=== PATIENT | female | born 1975 | race Caucasian/White ===

== ENCOUNTER 2017-09-23 13:11 | Inpatient (IN) | payer OTHER ==
[~2017-09-23] VITALS: Ht 172.1 cm; Wt 73.9 kg
[~2017-09-23 13:11] MED LIST changes: -FLUT1DIS27 IH; -OMEP-125 PO
[2017-09-23] MEDS ORDERED: FAMOTIDINE(*) 20MG/50ML PREMIX 50 ML IVPB PRN (13:17)
[2017-09-23] MEDS ORDERED: OXYTOCIN 30 UNIT/D5LR 500 ML 500 ML IV PRN (13:17)
[2017-09-23] MEDS ORDERED: METOCLOPRAMIDE 10 MG/2 ML SDV IVP PRN (13:20)
[2017-09-23] MEDS ORDERED: LIDOCAINE 1% LOCAL 300 MG/30ML INJ PRN (13:20)
[2017-09-23] MEDS ORDERED: FLUSH 10 ML SYR IVP PRN (13:20)
[2017-09-23] MEDS ORDERED: fentaNYL CITR 100 MCG/2 ML AMP IVP PRN (13:20)
[2017-09-23] MEDS ORDERED: cefOXitin SOD 2 GM VIAL 2 GM in NS(*) 0.9% 100 ML BAG 100 ML IVPB PRN (13:20)
[2017-09-23 13:43] VITALS: BP 130/78; Ht 172.1 cm; Wt 73.9 kg
[2017-09-23] MEDS ORDERED: DINOPROSTONE 10 MG INSERT PV ONE (14:00)
[2017-09-23] MEDS ORDERED: TERBUTALINE SULF 1 MG/ML VIAL SUBQ PRN (14:00)
[2017-09-23 14:14] LABS: PLATELET COUNT, AUTOMATED 176 K/uL (150-450)
[2017-09-23] MEDS: LR(*) 1000 ML BAG 1,000 ML IV PRN (14:16)
[2017-09-23] MEDS: DLR(*) 1000 ML BAG 1,000 ML IV PRN ×2 (14:16→23:53)
--- NOTE | 2017-09-23 15:00 | History & Physical ---
History of Present Illness Age of Patient: 42 : 4 Para or TPAL: 0030 EDC per LMP: September 28, 2017 Estimated Gestational Age: 39.2 Chief Complaint loss of fluid History of Present Illness The patient is a 42 year old 4 para 0030 admitted at 39 2/7 weeks estimated gestational age with an estimated date of delivery 09/28/17 . Patient is admitted with complaint of loss of fluid . No vaginal bleeding. Good movement and occasional contractions. She was evaluated for active labor. She had an uncomplicated course. Her record was reviewed. History Allergies: Coded Allergies: Latex, Natural Rubber (Verified Allergy, Mild, Hives, 09/23/17) Med Rec Home Meds Active Scripts Promethazine Hcl (PROMETHAZINE HCL) 25 Mg Supp.rect, 25 MG RC Q8H Y for NAUSEA, #5 SUPP.RECT Prov:DAVID BARTH MD 04/08/17 Promethazine Hcl (PROMETHAZINE HCL) 12.5 Mg Tablet, 12.5 MG PO Q6H Y for NAUSEA , #10 TAB Prov:DAVID BARTH MD 04/08/17 Reported Medications Vits W-Ca,Fe,Fa(<1MG) ( VITAMINS) 1 Each Tablet, 1 TAB PO DAILY , TAB 06/30/15 Exam General Exam Vital Signs Vital Signs Date Time Temp Pulse Resp B/P (MAP) Pulse Ox O2 Delivery O2 Flow Rate FiO2 09/23/17 13:43 98.4 78 14 130/78 (95) 98 Room Air Cardiovascular: Regular Rate and Rhythm Respiratory: Clear to Auscultation Abdomen: Gravid - Non-Tender Extremities: No Edema Cervical Dialation: 0 Cervical Effacement (%): 50 Cervical Consistency: Moderate Cervical Position: Mid Station: -2 Presentation: Vertex Uterine Contractions(Q min): 0 Fetus Heart Tones: 120 Heart Tone Variabilty: Moderate FHT Category: I Medical Decision Making Data Points Result Diagram: 09/23/17 1340 Assessment and Plan Problems: (1) Premature rupture of membranes Assessment & Plan: amnisure positive, no gush of fluid, no ferning at office. small leak likely, very unfavorable cervix will start cervadil to see able to ripen cervix for delivery. Copies to: CHIP MENDIETA MD Problem Qualifiers (1) Premature rupture of membranes: PROM onset of labor timing: unspecified duration between rupture of membranes and onset of labor PROM gestational age: full term Qualified Codes: O42.92 - Full-term premature rupture of membranes, unspecified as to length of time between rupture and onset of labor CHIP MENDIETA MD September 23, 2017 14:59
[2017-09-23] MEDS ORDERED: FLUT1DIS27 IH (15:03)
[2017-09-23] MEDS ORDERED: OMEP-125 PO (15:03)
[2017-09-23] MEDS ORDERED: EPIDURAL KEYS XX PRN (20:20)
[2017-09-23] MEDS ORDERED: LIDO/EPI 2% MPF 1:200,000 20ML EPI PRN (20:20)
[2017-09-23] MEDS ORDERED: LIDOCAINE/PF 2% 200MG/10ML AMP 200 MG/10 ML AMPUL EPI PRN (20:20)
[2017-09-23] MEDS ORDERED: BUPIVACAINE 0.5% INJ 30ML VIAL EPI PRN (20:20)
[2017-09-23] MEDS ORDERED: fentaNYL CITR 100 MCG/2 ML AMP IT PRN (20:20)
[2017-09-23] MEDS ORDERED: FENTANYL/ROPIVACAINE 100 ML BAG EPI PRN (20:20)
[2017-09-23] MEDS ORDERED: ePHEDrine 25 MG/5 ML DISP.SYR IVP PRN (20:20)
[2017-09-23] MEDS ORDERED: BUPIVACAINE 0.25% MPF INJ EPI PRN (20:20)
[2017-09-24] MEDS ORDERED: MISOPROSTOL 25 MCG CAP PV ONE (02:45)
[2017-09-24] MEDS: DLR(*) 1000 ML BAG 1,000 ML IV PRN (08:15)
[2017-09-24] MEDS ORDERED: OXYTOCIN 30 UNIT/D5LR 500 ML 500 ML IV PRN (09:01)
--- NOTE | 2017-09-24 09:04 | Labor Progress Note ---
Labor Subjective Progress Notes Subjective FEELING OCCASIONAL CONTRACTIONS Vaginal Discharge/Fluid: Bloody Show Labor Pain: Mild Labor Objective Vital Signs Vital Signs Date Time Temp Pulse Resp B/P (MAP) Pulse Ox O2 Delivery O2 Flow Rate FiO2 09/23/17 13:43 98.4 78 14 130/78 (95) 98 Room Air Cervical Dialation: 2 Cervical Effacement (%): 75 Cervical Consistency: Soft Cervical Position: Mid Station: -1 Presentation: Vertex Uterine Contractions(Q min): 4 Fetus Heart Tones: 120 Heart Tone Variabilty: Moderate FHT Category: I Other Result Diagram: 09/23/17 1340 Assessment and Plan Problems: (1) Premature rupture of membranes Assessment & Plan: RECEIVED CERVADIL AND CYTOTEC, CERVIX SOFTENED AND MORE EFFACED THIS AM, AFEBRILE. COOK BALLOON PLACED WILL MONITOR FOR CHANGE WITH PITOCIN AUGMENTATION Problem Qualifiers (1) Premature rupture of membranes: PROM onset of labor timing: unspecified duration between rupture of membranes and onset of labor PROM gestational age: full term Qualified Codes: O42.92 - Full-term premature rupture of membranes, unspecified as to length of time between rupture and onset of labor CHIP MENDIETA MD September 24, 2017 09:04
[2017-09-24] MEDS ORDERED: ONDANSETRON 4 MG/2 ML VIAL IVP ONE (09:05)
[2017-09-24] MEDS ORDERED: SALMETEROL/FLUTIC 100/50 1 INH INH SCH (09:10)
[2017-09-24] MEDS: LR(*) 1000 ML BAG 1,000 ML IV PRN ×3 (09:12→15:52)
--- NOTE | 2017-09-24 10:44 | Anesthesia OB Pre-Anes Eval ---
History of Present Illness Anesthesia Start Date: September 24, 2017 Anesthesia Start Time: 09:38 OB Anesthesia Diagnosis: spontaneous ROM EDC: September 28, 2017 : 4 Para: 0 Vital Signs: Vital Signs 09/23/17 13:43 Temp 98.4 Pulse 78 Resp 14 B/P (MAP) 130/78 (95) Pulse Ox 98 O2 Delivery Room Air Pain Ratin Heart Tones: 134 Result Diagram: 09/23/17 1340 Height (Inches): 67.75 Weight (Pounds): 163 BMI Calculated: 24.96 Past Medical History Medical History: asthma Surgical History: noncontributory, other (knee) Previous Anesthesia: spinal Attended Childbirth Classes?: No Hx Anesthesia Reactions: No Hx Family Anesthesia Reaction: No Current Medications: pain medication Home Meds Reported Medications Omeprazole (OMEPRAZOLE) 20 Mg Capsule.dr, 1 CAP PO DIRECTED, CAP 09/23/17 Fluticasone/Salmeterol (ADVAIR 100-50 DISKUS) 1 Each Disk.w.dev, 1 EACH IH 09/23/17 Vits W-Ca,Fe,Fa(<1MG) ( VITAMINS) 1 Each Tablet, 1 TAB PO DAILY , TAB 06/30/15 Discontinued Scripts Promethazine Hcl (PROMETHAZINE HCL) 25 Mg Supp.rect, 25 MG RC Q8H Y for NAUSEA, #5 SUPP.RECT Prov:DAVID BARTH MD 04/08/17 Promethazine Hcl (PROMETHAZINE HCL) 12.5 Mg Tablet, 12.5 MG PO Q6H Y for NAUSEA , #10 TAB Prov:DAVID BARTH MD 04/08/17 Allergies: Coded Allergies: Latex, Natural Rubber (Verified Allergy, Mild, Hives, 09/23/17) Anesthesia OB ROS Neurological: No migraines/headaches, No seizures, No neuropathy, No other ENT: Denies Tooth caps, Denies Loose teeth, Denies Chipped teeth, Denies Dentures, Denies Bridges, Denies Retainers, Denies Veneers, Denies Implants, Denies Tongue ring, Denies Other Pulmonary: asthma Airway Class: lll (small mth, limited opening TMJ issues) Cardiovascular ROS: No edema, No arrhythmia, No other GI ROS: clear liquids Last Solids Date: September 23, 2017 Last Solids Time: 20:00 ROS: No Herpes, No STD(s), No Liver Disease, No Renal Disease, No Other Endocrine ROS: No diabetes, No gestational diabetes, No thyroid disorder, No other Musculoskeletal ROS: No low back pain, No low back injury, No scoliosis, No other ASA Classification: 2 Assessment and Plan Anesthesia Plan: DASIA ARREDONDO CRNA September 24, 2017 10:44
--- NOTE | 2017-09-24 10:46 | Procedure Note ---
Anesthetic Placement Note Anesthesia Plan: CSE Permit for Anesthesia Signed: Yes Anesthesia Technique: Patient Sitting Anesthesia Prep: Chlorhexidine Interspace: L 3-4 Local Anesthetic: 1% Lidocaine Amount Local - cc's: 3 Anesthesia Needle: 17g Touhy/Schliff Anesthesia Attempts: 1 Loss of Resistance: Normal Saline Depth of VALERIA (cm): 4 Epidural Needle Placement: No CSF, No Blood, No Parasthesia Intrathecal Needle: 27 Gauge Pencan Cerebral Spinal Fluid: Yes, Clear Catheter Insertion (cm): 9 Catheter Type: Castelan - Spring Wound Epidural Dressing: Tegaderm, Tape Anesthesia Tray: Lot Number ([id number]), Expiration Date (03/06), Reference Number ([id number]) Anesthesia Medications: Intrathecal Dose: mcg Fentanyl (10), mg Marcaine MPF (2.5), Time (0955) Epidural Test Dose: 1.5 Lido/Epi (1:200,000), Dose - mL (3), Time (0958), Negative Epidural Infusion: 0.2% Ropivicaine, With Fentanyl 2mcg/ml, Start Time: (1020) Epidural Pump Setting: Bolus Dose - mL (6), Lockout - Minutes (20), Maintenance Rate - mL/hr (6), Maximum per Hour - mL (24) Complications: None DASIA MENDEZ CRNA September 24, 2017 10:46
--- NOTE | 2017-09-24 12:05 | Anesthesia Progress Note ---
Progress/Maintenance Anesthesia Note Date: September 24, 2017 Anesthesia Note Time: 12:10 Pain Intensity: 0 Pump Rate (ML/HR): 6 Dilatation: 3 Position: Right, Lateral DASIA MENDEZ CRNA September 24, 2017 12:05
--- NOTE | 2017-09-24 12:43 | Labor Progress Note ---
Labor Subjective Progress Notes Subjective comfortable with epidural, balloon out of cervix Vaginal Discharge/Fluid: Bloody Show Labor Pain: Comfortable Labor Objective Vital Signs Vital Signs Date Time Temp Pulse Resp B/P (MAP) Pulse Ox O2 Delivery O2 Flow Rate FiO2 09/23/17 13:43 98.4 78 14 130/78 (95) 98 Room Air Cervical Dialation: 4 Cervical Effacement (%): 90 Cervical Consistency: Soft Cervical Position: Mid Station: -1 Presentation: Vertex Uterine Contractions(Q min): 3 Uterine Contraction Strength: Moderate Fetus Heart Tones: 130 Heart Tone Variabilty: Moderate FHT Category: I Other Result Diagram: 09/23/17 1340 Assessment and Plan Problems: (1) Premature rupture of membranes Assessment & Plan: balloon fell out, remainder of amniotic membrane removed. minimal fluid. Problem Qualifiers (1) Premature rupture of membranes: PROM onset of labor timing: unspecified duration between rupture of membranes and onset of labor PROM gestational age: full term Qualified Codes: O42.92 - Full-term premature rupture of membranes, unspecified as to length of time between rupture and onset of labor CHIP MENDIETA MD September 24, 2017 12:43
[2017-09-24] MEDS ORDERED: NS(*) 0.9% 1000 ML BAG 1,000 ML PV PRN (15:07)
--- NOTE | 2017-09-24 15:09 | Labor Progress Note ---
Labor Subjective Progress Notes Subjective comfortable with epidural Vaginal Discharge/Fluid: Bloody Show Labor Pain: Comfortable Labor Objective Vital Signs Vital Signs Date Time Temp Pulse Resp B/P (MAP) Pulse Ox O2 Delivery O2 Flow Rate FiO2 09/23/17 13:43 98.4 78 14 130/78 (95) 98 Room Air Cervical Dialation: 5 Cervical Effacement (%): 95 Cervical Consistency: Soft Cervical Position: Anterior Station: 0 Presentation: Vertex Uterine Contractions(Q min): 3 Uterine Contraction Strength: Strong Fetus Heart Tones: 130 Heart Tone Variabilty: Moderate FHT Accelerations: 15X15 FHT Decelerations: Variable FHT Category: II Other Result Diagram: 09/23/17 1340 Assessment and Plan Problems: (1) Premature rupture of membranes Assessment & Plan: IUPC PLACED, WILL AMNIOINFUSE AND MONITOR FOR CHANGE IN CERVIX Problem Qualifiers (1) Premature rupture of membranes: PROM onset of labor timing: unspecified duration between rupture of membranes and onset of labor PROM gestational age: full term Qualified Codes: O42.92 - Full-term premature rupture of membranes, unspecified as to length of time between rupture and onset of labor CHIP MENDIETA MD September 24, 2017 15:09
--- NOTE | 2017-09-24 15:27 | Anesthesia Progress Note ---
Progress/Maintenance Anesthesia Note Date: September 24, 2017 Anesthesia Note Time: 13:30 Pain Intensity: 5 Pump Rate (ML/HR): 6 Sensory Level: LLQ pain, window Motor Level: Bending Knees-Bilateral Dilatation: 5 Position: Left Drug Bolus: 0.25% Marcaine (5cc), Other (Fent 50 mcg) Anesthesia Treatment: Bolus DASIA MENDEZ CRNA September 24, 2017 15:27
--- NOTE | 2017-09-24 15:28 | Anesthesia Progress Note ---
Progress/Maintenance Anesthesia Note Date: September 24, 2017 Anesthesia Note Time: 15:15 Pain Intensity: 0 Pump: On Pump Rate (ML/HR): 6 Sensory Level: R leg very numb Dilatation: 5 Position: Left Anesthesia Treatment: pump decreased to 4 DASIA MENDEZ CRNA September 24, 2017 15:28
--- NOTE | 2017-09-24 20:01 | Labor Progress Note ---
Labor Subjective Progress Notes Subjective comfortable with epidural Vaginal Discharge/Fluid: Bloody Show Labor Pain: Comfortable Labor Objective Vital Signs Vital Signs Date Time Temp Pulse Resp B/P (MAP) Pulse Ox O2 Delivery O2 Flow Rate FiO2 09/23/17 13:43 98.4 78 14 130/78 (95) 98 Room Air Cervical Dialation: 9.5 Cervical Effacement (%): 100 Cervical Consistency: Soft Cervical Position: Anterior Station: +1 Presentation: Vertex Uterine Contractions(Q min): 3 Uterine Contraction Strength: Strong Fetus Heart Tones: 120 Heart Tone Variabilty: Moderate FHT Category: I Other Result Diagram: 09/23/17 1340 Assessment and Plan Problems: (1) Premature rupture of membranes (2) Active labor at term Assessment & Plan: anterior lip, anticipated vaginal delivery Problem Qualifiers (1) Premature rupture of membranes: PROM onset of labor timing: unspecified duration between rupture of membranes and onset of labor PROM gestational age: full term Qualified Codes: O42.92 - Full-term premature rupture of membranes, unspecified as to length of time between rupture and onset of labor CHIP MENDIETA MD September 24, 2017 20:01
--- NOTE | 2017-09-24 20:22 | Anesthesia Progress Note ---
Progress/Maintenance Anesthesia Note Date: September 24, 2017 Anesthesia Note Time: 18:30 Pain Intensity: 3 Pump: On Pump Rate (ML/HR): 4 Sensory Level: moving R more, LLQ pain Dilatation: 8 Position: Left Drug Bolus: Other (fent 40 mcg) Anesthesia Treatment: increased rate to 6 DASIA MENDEZ CRNA September 24, 2017 20:22
--- NOTE | 2017-09-24 20:57 | Labor Progress Note ---
Labor Subjective Progress Notes Subjective comfortable with epidural Vaginal Discharge/Fluid: Bloody Show Labor Pain: Comfortable Labor Objective Vital Signs Vital Signs Date Time Temp Pulse Resp B/P (MAP) Pulse Ox O2 Delivery O2 Flow Rate FiO2 09/23/17 13:43 98.4 78 14 130/78 (95) 98 Room Air Cervical Dialation: 10 Station: +2 Presentation: Vertex Uterine Contractions(Q min): 3 Uterine Contraction Strength: Strong Fetus Heart Tones: 120 Heart Tone Variabilty: Moderate FHT Accelerations: 15X15 FHT Decelerations: Variable FHT Category: II Other Result Diagram: 09/23/17 1340 Assessment and Plan Problems: (1) Premature rupture of membranes (2) Active labor at term Assessment & Plan: complete will allow to push Problem Qualifiers (1) Premature rupture of membranes: PROM onset of labor timing: unspecified duration between rupture of membranes and onset of labor PROM gestational age: full term Qualified Codes: O42.92 - Full-term premature rupture of membranes, unspecified as to length of time between rupture and onset of labor CHIP MENDIETA MD September 24, 2017 20:57
[2017-09-24] MEDS ORDERED: METHYLERGONOVINE MAL 0.2MG/ML ONE (21:56)
[2017-09-24] MEDS ORDERED: CARBOPROST TROMETHAM 250MCG/ML IM ONLY ONE (21:56)
--- NOTE | 2017-09-24 22:28 | Anesthesia Progress Note ---
Assessment and Plan Anesthesia Plan: CSE Anesthesia Stop Day: September 24, 2017 Anesthesia Stop Time: 22:30 Epidural Catheter Removal: Removed Catheter Intact, Yes, Removed by: (RN) DASIA MENDEZ CRNA September 24, 2017 22:28
--- NOTE | 2017-09-24 22:53 | OB Delivery Note ---
Delivery Note Vaginal Delivery Type: Spont. Vaginal Delivery Delivery Date: September 24, 2017 Delivery Time: 22:14 Estimated Gestational Age(wks): 39.3 Delivery Anesthesia: Epidural, Local Sex: Male Infant Weight (gms): [address] [place] Apgars: 1 Minute (8), 5 Minute (9) Repair Needed: Laceration, Perineal, 2nd Degree Estimated Blood Loss: 400 Delivery Complications: Nuchal Cord Notes: PROM, AMNISURE POSITIVE. CERVADIL AND CYTOTEC PLACED FOR CERVICAL RIPENING IN SUCCESSION, THEN COOK BALLOON PLACED AND REMAINDER OF AMNIOTIC MEMBRANE RUPTURED. PITOCIN AUGMENTATION, IUPC AND AMNIOINFUSION STARTED FOR VARIABLE DECELERATIONS. PROGRESSED TO COMPLETE PUSHED EFFECTIVELY, MECONIUM STAINED FLUID BULB SUCTIONED ON PERINEUM OROPHARYNX AND NASOPHARYNX. REMAINDER OF INFANT DELIVERED WITH EASE. 2ND DEGREE LACERATION REPAIRED IN USUAL FASHION WITH 3-0 VICRYL. NO COMPLICATIONS Exercise Rider in Attendence: Yes Copies to: CHIP MENDIETA MD, JOHN MD September 24, 2017 22:53
[2017-09-24] MEDS ORDERED: INFLUENZA VIRUS VAC 0.5 ML SYR IM ONLY ONE (22:55)
[2017-09-24] MEDS ORDERED: LANOLIN OINT 7 GM TUBE TP PRN (22:55)
[2017-09-24] MEDS ORDERED: HYDROCORTISONE 2.5% CR 30GM TB PR PRN (22:55)
[2017-09-24] MEDS ORDERED: DIPHTH/TETANUS/ACEL. PERTUSSIS IM ONLY ONE (22:55)
[2017-09-24] MEDS ORDERED: MAGNESIUM HYDROXIDE* 30ML UDCP PO PRN (22:55)
[2017-09-24] MEDS ORDERED: MEASLES,MUMP,RUBELLA VAC 0.5ML SUBQ ONE (22:55)
[2017-09-24] MEDS ORDERED: GLYCERIN/WITCH HAZEL LEAF 1 PK TP PRN (22:55)
[2017-09-24] MEDS: IBUPROFEN 800 MG TAB PO SCH (23:28)
[2017-09-24] MEDS: BENZOCAINE 20% 60 ML BTL TP PRN (23:29)
[2017-09-25] VITALS (7 sets, daily range): BP systolic 113–130; BP diastolic 58–78
[2017-09-25] MEDS ORDERED: LIDOCAINE 1% LOCAL 300 MG/30ML 30 ML ONE (00:55)
--- NOTE | 2017-09-25 08:21 | OB/GYN Progress Note ---
OB Subjective Progress Notes Subjective Pain controlled, Tolerating diet and activity. Baby . Normal lochia. GI: POS Flatus, NEG Nausea, NEG Vomiting : Voiding Well Pain: Mild OB Objective Physical Exam Vital Signs Date Time Temp Pulse Resp B/P (MAP) Pulse Ox O2 Delivery O2 Flow Rate FiO2 09/25/17 07:45 98.7 70 14 129/69 (89) Room Air 09/25/17 03:42 94 Cardiovascular: Regular Rate and Rhythm Respiratory: Clear to Auscultation Abdomen: Fundus Firm Extremities: No Edema Result Diagram: 09/25/17 0559 Assessment and Plan Problems: (1) Premature rupture of membranes Status: Resolved (2) Active labor at term Status: Resolved (3) care following vaginal delivery Assessment & Plan: Pain controlled, Tolerating diet and activity. Baby . Normal lochia. Problem Qualifiers (1) Premature rupture of membranes: PROM onset of labor timing: unspecified duration between rupture of membranes and onset of labor PROM gestational age: full term Qualified Codes: O42.92 - Full-term premature rupture of membranes, unspecified as to length of time between rupture and onset of labor CHIP MENDIETA MD September 25, 2017 08:21
[2017-09-25] MEDS ORDERED: IBUP800T37 PO (08:22)
[2017-09-25] MEDS ORDERED: HYDR2TAB4 PO (08:22)
--- NOTE | 2017-09-25 08:24 | OB/GYN Discharge Summary ---
Discharge Summary Reason for Hosp/Final Diag: (1) Premature rupture of membranes Status: Resolved (2) Active labor at term Status: Resolved (3) care following vaginal delivery Hospital Course & Plan: PROM, IOL, vaginal delivery on day 2, Pain controlled , Tolerating diet and activity. Baby . Normal lochia. Lates Vital Signs Vital Signs Date Time Temp Pulse Resp B/P (MAP) Pulse Ox O2 Delivery O2 Flow Rate FiO2 09/25/17 07:45 98.7 70 14 129/69 (89) Room Air 09/25/17 03:42 94 Weight (Pounds): 163 Result Diagram: 09/25/17 0559 Condition: Improved Discharge: Home, Self Nursing Home Meds Active Scripts Ibuprofen (IBUPROFEN) 800 Mg Tablet, 1 TAB PO Q8H, #30 TAB 0 Refills Take with food every 8 hours. Prov:CHIP GOMEZ MD 09/25/17 Hydromorphone Hcl (HYDROMORPHONE HCL) 2 Mg Tablet, 2-4 MG PO Q4H for PAIN, #20 TAB 0 Refills Prov:CHIP GOMEZ MD 09/25/17 Reported Medications Omeprazole (OMEPRAZOLE) 20 Mg Capsule.dr, 1 CAP PO DIRECTED, CAP 09/23/17 Fluticasone/Salmeterol (ADVAIR 100-50 DISKUS) 1 Each Disk.w.dev, 1 EACH IH 09/23/17 Vits W-Ca,Fe,Fa(<1MG) ( VITAMINS) 1 Each Tablet, 1 TAB PO DAILY , TAB 06/30/15 Discontinued Scripts Promethazine Hcl (PROMETHAZINE HCL) 25 Mg Supp.rect, 25 MG RC Q8H Y for NAUSEA, #5 SUPP.RECT Prov:DAVID BARTH MD 04/08/17 Promethazine Hcl (PROMETHAZINE HCL) 12.5 Mg Tablet, 12.5 MG PO Q6H Y for NAUSEA , #10 TAB Prov:DAVID BARTH MD 04/08/17 Follow up with: Dr. Gomez [phone] Follow up in: 6 wks PP or PO Discharge Diet: As Tolerates Discharge Activity: Pelvic Rest Copies to: CHIP GOMEZ MD Problem Qualifiers (1) Premature rupture of membranes: PROM onset of labor timing: unspecified duration between rupture of membranes and onset of labor PROM gestational age: full term Qualified Codes: O42.92 - Full-term premature rupture of membranes, unspecified as to length of time between rupture and onset of labor CHIP GOMEZ MD September 25, 2017 08:24
[2017-09-25] MEDS: DOCUSATE CALCIUM 240 MG CAP PO SCH ×2 (08:54→20:38)
[2017-09-25] MEDS: IBUPROFEN 800 MG TAB PO SCH ×2 (08:54→18:19)
[2017-09-25] MEDS: MULTIVITAMINS (PRENATAL) TAB PO SCH (08:54)
[2017-09-25] MEDS: ACETAMINOPHEN 325 MG TAB PO PRN ×2 (08:55→13:26)
[2017-09-25] MEDS: HYDROmorphone HCL 2 MG TAB PO PRN ×3 (08:55→20:38)
--- NOTE | 2017-09-25 10:25 | Anesthesia Post Eval Note ---
Anesthesia Post Eval Note Vital Signs 09/25/17 09/25/17 03:42 07:45 Temp 98.7 Pulse 70 Resp 14 B/P (MAP) 129/69 (89) Pulse Ox 94 O2 Delivery Room Air Pt able to participate in Eval: Yes Cardiovascular Status: Satisfactory Respiratory Status: Satisfactory Pain Managment: Satisfactory PO Nausea/Vomiting: Satisfactory Temperature Management: Satisfactory Mental Status: Satisfactory, Unsatisfactory, Alert, Oriented X3 Post-Op Hydration Status: Tolerating PO Well, Voiding w/o Difficulty Anesthesia Type: DASIA ARREDONDO CRNA September 25, 2017 10:25
[2017-09-25] MEDS: BENZOCAINE 20% 60 ML BTL TP PRN (20:38)
[2017-09-26] MEDS: IBUPROFEN 800 MG TAB PO SCH ×2 (00:02→10:00)
[2017-09-26] MEDS: HYDROmorphone HCL 2 MG TAB PO PRN ×2 (01:52→11:12)
--- NOTE | 2017-09-26 08:01 | OB/GYN Progress Note ---
OB Subjective Progress Notes Subjective Doing well. Pain controlled and ambulating. Voiding well without problems. GI: NEG Nausea : Voiding Well Pain: Mild OB Objective Physical Exam Vital Signs Date Time Temp Pulse Resp B/P (MAP) Pulse Ox O2 Delivery O2 Flow Rate FiO2 09/26/17 04:40 18 Room Air 09/25/17 23:55 97.6 76 09/25/17 19:45 95 General Appearance: Alert/Awake/No Acute Distress Cardiovascular: Normal Rhythm & Peripheral Pulses, Regular Rate and Rhythm Respiratory: No Respiratory Distress, Clear to Auscultation Abdomen: Soft, Non-Tender, Non-Distended, Fundus Firm Extremities: No Cyanosis,Clubbing or Edema, No Edema Integumentary: Skin Intact without Lesions or Rash Psychological: Alert & Oriented X3, Appropriate Mood & Affect Result Diagram: 09/25/17 0559 Assessment and Plan ACCOUNTS RECEIVABLE BOOKKEEPER Plan: Discharge Home Today Problems: (1) Premature rupture of membranes Status: Resolved (2) Active labor at term Status: Resolved (3) care following vaginal delivery Assessment & Plan: PROM, IOL, vaginal delivery on day 2, Pain controlled, Tolerating diet and activity. Baby . Normal lochia. Discharge to room in today. Problem Qualifiers (1) Premature rupture of membranes: PROM onset of labor timing: unspecified duration between rupture of membranes and onset of labor PROM gestational age: full term Qualified Codes: O42.92 - Full-term premature rupture of membranes, unspecified as to length of time between rupture and onset of labor TAMARA DEUTSCH MD September 26, 2017 08:01
[2017-09-26 10:00] VITALS: BP 121/71
[2017-09-26] MEDS: DOCUSATE CALCIUM 240 MG CAP PO SCH (10:00)
[2017-09-26] MEDS: MULTIVITAMINS (PRENATAL) TAB PO SCH (10:00)
== END 2017-09-26 14:05 | disposition home or self-care (01) | DRG 775 ==
LOC: OB 13:11
PROVIDERS: ADMIT Obstetrics & Gynecology; ATTEND Obstetrics & Gynecology
PROC: 3E0P7VZ Introduction of Hormone into Female Reproductive, Via Natural or Artificial Opening (ICD-10-PCS; 2017-09-23)
PROC: 10E0XZZ Delivery of Products of Conception, External Approach (ICD-10-PCS; principal; 2017-09-24)
PROC: 0KQM0ZZ Repair Perineum Muscle, Open Approach (ICD-10-PCS; 2017-09-24)
PROC: 3E0E7GC Introduction of Other Therapeutic Substance into Products of Conception, Via Natural or Artificial Opening (ICD-10-PCS; 2017-09-24)
PROC: 10H07YZ Insertion of Other Device into Products of Conception, Via Natural or Artificial Opening (ICD-10-PCS; 2017-09-24)
PROC: 4A1H74Z Monitoring of Products of Conception, Cardiac Electrical Activity, Via Natural or Artificial Opening (ICD-10-PCS; 2017-09-24)
PROC: 0U7C7ZZ Dilation of Cervix, Via Natural or Artificial Opening (ICD-10-PCS; 2017-09-24)
DX: O42.92 Full-term premature rupture of membranes, unspecified as to length of time between rupture and onset of labor (principal); O69.81X0 Labor and delivery complicated by cord around neck, without compression, not applicable or unspecified; O76 Abnormality in fetal heart rate and rhythm complicating labor and delivery; O77.0 Labor and delivery complicated by meconium in amniotic fluid; O70.1 Second degree perineal laceration during delivery; Z3A.39 39 weeks gestation of pregnancy; Z37.0 Single live birth; Z91.040 Latex allergy status
CPT/HCPCS: 36415; 85025; 85027; 86850; 86900; 86901; 88307; C1726; J2001; J2405; J2590; J3010; J7030; J7120; S0020

== ENCOUNTER → 2017-09-23 | Outpatient (REF) | payer OTHER ==
[~2017-09-23] MED LIST: ACET-1718 PO; ACET500T68 PO; ALB18R INH; ALBU8.5H12 IH; CIPR-214 PO; FLUT1DIS27 IH; IBUP400T13 PO; IBUP800T37 PO; MET2TH PO; OMEP-125 PO; OXYC-373 PO; OXYC-865 PO; PREN-127 PO; PROM12.556 PO; PROM25SU9 RC; SAL50R INH
== END ==
LOC: ZZSENDIN 10:51
PROVIDERS: ATTEND Obstetrics & Gynecology
DX: O42.10 Premature rupture of membranes, onset of labor more than 24 hours following rupture, unspecified weeks of gestation (principal)
CPT/HCPCS: 84112

== ENCOUNTER → 2017-10-10 | Outpatient (CLI) | payer OTHER ==
[2017-09-23 13:43] VITALS: BMI 25.0
[~2017-10-10] MED LIST changes: +FLUT1DIS27 IH; +HYDR2TAB4 PO; +OMEP-125 PO
--- NOTE | 2017-10-10 12:08 | RADIOLOGY IMAGING REPORT ---
FACILITY: [facility] PATIENT NAME: Deena Elias : 1975 MR: [id number] V: [id number] EXAM DATE: ORDERING PHYSICIAN: KHADIJAH NARANJO TECHNOLOGIST: Location: [facility] Patient: Deena Elias : 1975 Visit/Account:[id number] Date of Sevice: 10/10/2017 Venous Doppler ultrasound left upper extremity Indication: Phlebitis. Comparison: None available. Findings: There is normal compressibility and blood flow of the left internal jugular vein. There is normal blood flow to the left subclavian vein. There is normal compressibility and blood flow identified within the left axillary vein, brachial vei ns, basilic and cephalic veins. There is a superficial vein in the medial left forearm which shows intraluminal thrombus with poor co mpressibility and blood flow. Soft tissues are otherwise unremarkable. IMPRESSION: 1. No evidence of deep venous thrombosis of the left upper extremity. 2. Superficial thrombophlebitis of the superficial vein in the medial left forearm. I called report to KHADIJAH NARANJO at 10/10/2017 12:03 PM. Report Dictated By: Myles Weber at 10/10/2017 11:58 AM Report E-Signed By: Myles Weber at 10/10/2017 12:04 PM WSN:[id number]
== END ==
LOC: SPU 10:13
PROVIDERS: ATTEND Internal Medicine Hematology
DX: I80.8 Phlebitis and thrombophlebitis of other sites (principal)

== ENCOUNTER → 2018-02-20 | Outpatient (REF) ==
[2017-09-23 13:43] VITALS: BMI 25.0
[~2018-02-20] MED LIST changes: +ESCI20TA38 PO
[2018-02-20 08:21] LABS: LDL CHOLESTEROL 57 mg/dl
== END ==
DX: Z02.9 Encounter for administrative examinations, unspecified (principal)

== ENCOUNTER → 2018-03-25 | Outpatient (CLI) | payer OTHER ==
[2017-09-23 13:43] VITALS: BMI 25.0
[~2018-03-25] MED LIST changes: +ESTR42.5 PV; +LEVO750T27 PO; +PRED20TA6 PO
== END ==
LOC: LAB 15:44
PROVIDERS: ATTEND Obstetrics & Gynecology
DX: N94.10 Unspecified dyspareunia (principal)
CPT/HCPCS: 87210